=== PATIENT | female | born 1970 | race Caucasian/White ===

== ENCOUNTER 2017-02-24 17:50 | Emergency (ER) | payer OTHER ==
[2017-02-24 17:58] VITALS: BP 114/73; PULSE 63; TEMP 98.1; BMI 20.1
--- NOTE | 2017-02-24 18:02 | PDOC ---
History of Present Illness <Jessica Jeffrey - Last Filed: 02/24/17 18:02> - General History Source: Patient Exam Limitations: No Limitations - History of Present Illness Initial Comments: 02/24/17 18:15 The patient is a 47 year old female, with no significant past medical history, who presents to the emergency room with a right foot injury s/p mechanical fall this morning at 10:00am. She explains that she was texting on the sidewalk when she tripped over the rounded curb, twisted her right foot, and fell onto the grass. Denies head trauma. After standing up she went to the [employer] where she walked around for approximately 1 hour. She then went to the pool to swim. About 2 hours ago after swimming, her foot began to stiffen and become painful. Her pain progressively worsened and she is limping upon ambulation. Denies head trauma. Denies any other injuries. Denies fever, chills, nausea, vomiting. Allergies: bee venom, shellfish <Leona Miranda - Last Filed: 02/24/17 20:16> - General Chief Complaint: Injury Stated Complaint: RT FOOT, RT ANKLE PAIN Time Seen by Provider: 02/24/17 18:01 Past History - Past Medical History Other medical history: DENIES - Psycho/Social/Smoking Cessation Hx Anxiety: No Suicidal Ideation: No Smoking History: Former smoker Have you smoked in the past 12 months: No Information on smoking cessation initiated: No Hx Alcohol Use: (occasional) <Jessica Jeffrey - Last Filed: 02/24/17 18:02> <Leona Miranda - Last Filed: 02/24/17 20:16> - Past Medical History Allergies/Adverse Reactions: Allergies Allergy/AdvReac Type Severity Reaction Status Date / Time bee venom protein (honey bee) Allergy Verified 02/24/17 17:53 shellfish derived Allergy Verified 02/24/17 17:53 Home Medications: Ambulatory Orders Ibuprofen [Motrin -] 400 mg PO ONCE 02/24/17 Review of Systems - Review of Systems Able to Perform ROS?: Yes Comments:: 02/24/17 18:15 GENERAL/CONSTITUTIONAL: No fever or chills. No weakness. HEAD, EYES, EARS, NOSE AND THROAT: No change in vision. No ear pain or discharge. No sore throat. CARDIOVASCULAR: No chest pain or shortness of breath. RESPIRATORY: No cough, wheezing, or hemoptysis. MUSCULOSKELETAL: + right foot injury and pain. SKIN: No rash NEUROLOGIC: No headache, vertigo, loss of consciousness, or change in strength/ sensation. <Leona Miranda - Last Filed: 02/24/17 20:16> *Physical Exam - Vital Signs Last Vital Signs Temp Pulse Resp BP Pulse Ox 98.1 F 63 18 114/73 100 02/24/17 17:50 02/24/17 17:50 02/24/17 17:50 02/24/17 17:50 02/24/17 17:50 <Jessica Jeffrey - Last Filed: 02/24/17 18:02> - Vital Signs Last Vital Signs Temp Pulse Resp BP Pulse Ox 98.1 F 63 18 114/73 100 02/24/17 17:50 02/24/17 17:50 02/24/17 17:50 02/24/17 17:50 02/24/17 17:50 - Physical Exam Comments: 02/24/17 18:23 GENERAL: Awake, alert, and fully oriented, in no acute distress HEAD: No signs of trauma LUNGS: Breath sounds equal, clear to auscultation bilaterally. No wheezes, and no crackles HEART: Regular rate and rhythm, normal S1 and S2, no murmurs, rubs or gallops RIGHT LOWER EXTREMITY: No tenderness at the base of the 5th metatarsal. Tenderness over the midfoot without deformity or ecchymosis. No Tenderness over the lateral malleoli. Neurovascular and dorsalis pedis pulse in tact. NEUROLOGICAL: Cranial nerves II through XII grossly intact. Normal speech, normal gait SKIN: Warm, Dry, normal turgor, no rashes or lesions noted. <Leona Miranda - Last Filed: 02/24/17 20:16> ED Treatment Course - RADIOLOGY Radiograph Interpretation: 02/24/17 20:15 THIS IS A PRELIMINARY REPORT FROM [facility] EXAM: X-ray right foot and ankle IMAGES: 6 EXAM DATE AND TIME: 2017-02-24 18:18:44 REASON FOR EXAM: Trip and fall COMPARISON: None. FINDINGS: There is no fracture or dislocation The ankle mortise is intact Mild degenerative changes in the first metatarsal phalangeal joint The soft tissues are grossly normal THIS DOCUMENT HAS BEEN ELECTRONICALLY SIGNED Kendell Bean MD 02/24/2017 20:07 NNEKA Ingram Please call [facility] Digital Librarian [phone] ([phone]) with questions <Leona Miranda - Last Filed: 02/24/17 20:16> *DC/Admit/Observation/Transfer <Jessica Jeffrey - Last Filed: 02/24/17 18:02> - Attestations Scribe Attestion: 02/24/17 18:15 Documentation prepared by ENA Novoa, acting as medical assistant for Jessica Jeffrey MD. <Leona Miranda - Last Filed: 02/24/17 20:16> Diagnosis at time of Disposition: Right foot injury Qualifiers: Qualified Code(s): S99.921A - Unspecified injury of right foot, initial encounter - Discharge Dispostion Disposition: HOME Condition at time of disposition: Stable - Patient Instructions Printed Discharge Instructions: DI for Musculoskeletal Pain Additional Instructions: Ms. Busby Thank you for coming in to the ER today Please ice, elevate, rest your foot Please take Motrin for pain You can wear a hard soled shoe if this is comfortable for you Follow up with your primary care physician Return to the ER for any other concerns or complaints Thank you for your patience - Post Discharge Activity Work/School Note: Back to Work
--- NOTE | 2017-02-24 20:15 | PDOC ---
*Physical Exam - Vital Signs Last Vital Signs Temp Pulse Resp BP Pulse Ox 98.1 F 63 18 114/73 100 02/24/17 17:50 02/24/17 17:50 02/24/17 17:50 02/24/17 17:50 02/24/17 17:50 Medical Decision Making - Medical Decision Making 02/24/17 20:10 I received this patient in sign out pending x ray read 47-year-old female presenting to the emergency department status post trauma to the right foot. Midfoot pain There was some concern for possible fracture Called our radiologist multiple times, no response Image sent to imaging station operator Xray negative Will discharge to home *DC/Admit/Observation/Transfer Diagnosis at time of Disposition: Injury of right foot Qualifiers: Encounter type: initial encounter Qualified Code(s): S99.921A - Unspecified injury of right foot, initial encounter - Discharge Dispostion Disposition: HOME Condition at time of disposition: Stable Admit: No - Patient Instructions Printed Discharge Instructions: DI for Musculoskeletal Pain Additional Instructions: Ms. Busby Thank you for coming in to the ER today Please ice, elevate, rest your foot Please take Motrin for pain You can wear a hard soled shoe if this is comfortable for you Follow up with your primary care physician Return to the ER for any other concerns or complaints Thank you for your patience - Post Discharge Activity Work/School Note: Back to Work
== END 2017-02-24 20:24 | disposition home or self-care (01) ==
LOC: FER 17:50
DX: S99.921A Unspecified injury of right foot, initial encounter (principal); X58.XXXA Exposure to other specified factors, initial encounter; Y93.89 Activity, other specified; Y92.9 Unspecified place or not applicable
CPT/HCPCS: 73610-TC-RT; 73630-TC-RT; 99283-25